=== PATIENT | male | born 1955 | race African-American/Black ===

== ENCOUNTER 2020-12-29 09:26 | Inpatient (IN) ==
[2020-12-29] MEDS ORDERED: NOREPINEPHRINE 4 MG/4 ML VIAL IV ONE (09:36)
[2020-12-29] MEDS ORDERED: ETOMIDATE 20 MG/10 ML VIAL IV ONE (10:00)
[2020-12-29 10:04] LABS: ABG Base Excess -11.7 MMOL/L (-2.5-2.5); ABG HCO3 14.6 MMOL/L (20-26); ABG Oxygen Saturation 55.7 % (95-100); ABG PCO2 32.3 MM HG (35-48); ABG PH 7.258 (7.35-7.45); ABG PO2 42.6 MM HG (80-95); ABG TCO2 14.2 MMOL/L (23-27)
[2020-12-29 10:05] LABS: Immature Granulocytes % 0.7 %; Immature Granulocytes Absolute 0.03 #; Lymphocytes # 0.3 10*3/uL (1.4-4.0); Lymphocytes % 7.6 % (21.2-54.2); Mean Corpuscular HGB Conc 31.1 GM/DL (32-36); Mean Corpuscular Volume 91.5 FL (87-102); Mean Platelet Volume 11.5 FL (9.6-12.0); Monocytes % 5.6 % (1.7-12.7); NRBC # 0.08 10*3/uL; Neutrophils % 86.1 % (38.7-73.9); Platelet Count 125 T/CUMM (130-400); Red Blood Count 1.76 MC/CUMM (3.8-5.5); Red Cell Distribution Width 14.6 % (9.3-17.3); White Blood Count 4.1 T/CUMM (4-12)
[2020-12-29] MEDS ORDERED: PIPERACILLIN/TAZOBACTAM 3,375 MG in SODIUM CHLORIDE 0.9% 100 ML IV STA (10:15)
[2020-12-29 10:17] LABS: Hematocrit 16.1 VOL% (42.0-52.0)
[2020-12-29 10:18] LABS: INR 1.6; PT Patient Result 17.1 SECS (10.5-12.0); Partial Thromboplastin Time 26.1 SECS (23.8-32.1)
[2020-12-29 10:21] LABS: Hypochromasia 2+; Microcytosis 1+
[2020-12-29] MEDS ORDERED: SODIUM CHLORIDE 0.9% 1,000 ML IV PRN (10:21)
[2020-12-29 10:22] LABS: Platelet Estimate Normal
[2020-12-29] MEDS ORDERED: ROCURONIUM 100 MG/10 ML VIAL IV ONE (10:33)
[2020-12-29] MEDS ORDERED: SODIUM CHLORIDE 0.9% 1,000 ML IV STA (10:36)
[2020-12-29 10:47] LABS: Amorphous Crystals,Urine Few /HPF (Few); Bilirubin,Urine Negative (Negative); Blood, Urine Moderate mg/dL (Negative); Glucose,Urine (UA) Negative (Negative); Hyaline Casts,Urine 30 /LPF (0-3); Ketones,Urine Negative (Negative); Mucus,Urine Occasional /LPF (Occasional); Nitrite,Urine Negative (Negative); Protein,Urine 100 MG/DL; RBC,Urine 64 /HPF (0-4); Urine Appearance CLOUDY (Clear); Urine Color Amber (Yellow); Urine Specific Gravity 1.016 (1.001-1.035)
[2020-12-29 10:51] LABS: Albumin 1.7 G/DL (3.4-5.0); Bilirubin,Total 0.7 MG/DL (0.20-1.00); Calcium 7.8 MG/DL (8.5-10.1); Osmolality,Calculated 284.5 MOS/KG (273-304); Potassium 4.5 MMOL/L (3.5-5.1); Total Protein 5.1 G/DL (6.4-8.2)
[2020-12-29] MEDS ORDERED: DEXTROSE 50% 25 GM/50 ML VIAL IV STA (10:59)
[2020-12-29] MEDS ORDERED: ONDANSETRON 4 MG/2 ML VIAL IV PRN (11:01)
[2020-12-29] MEDS ORDERED: DEXTROSE 50% 25 GM/50 ML SYRINGE IV ONE (11:01)
[2020-12-29 11:06] LABS: Barbiturates Screen,Urine Negative (Negative); Benzodiazepines Screen,Urine Negative (Negative); Cannabinoid Screen,Urine Negative (Negative); Opiate Screen,Urine Negative (Negative); Phencyclidine Screen,Urine Negative (Negative)
[2020-12-29] MEDS ORDERED: SODIUM BICARBONATE 50 MEQ/50 ML VIAL IV STA (11:08)
[2020-12-29] MEDS ORDERED: SODIUM BICARBONATE 50 MEQ/50 ML VIAL IV ONE ×3 (11:09→14:32)
[2020-12-29] MEDS ORDERED: PANTOPRAZOLE 40 MG VIAL IV SCH (11:30)
[2020-12-29] MEDS ORDERED: HYDROCORTISONE 100 MG VIAL IV STA (11:31)
[2020-12-29] MEDS ORDERED: LACTATED RINGERS 1,000 ML IV SCH (13:30)
[2020-12-29 13:39] LABS: Hematocrit 21.3 VOL% (42.0-52.0); Hemoglobin 6.8 GM/DL (14.0-18.0)
[2020-12-29 13:40] LABS: ABG Base Excess -10.8 MMOL/L (-2.5-2.5); ABG HCO3 15.4 MMOL/L (20-26); ABG Oxygen Saturation 60.3 % (95-100); ABG PCO2 37.3 MM HG (35-48); ABG PH 7.237 (7.35-7.45); ABG PO2 44.6 MM HG (80-95); ABG TCO2 15.3 MMOL/L (23-27)
[2020-12-29 14:06] LABS: Calcium 7.6 MG/DL (8.5-10.1); Osmolality,Calculated 291.4 MOS/KG (273-304); Potassium 4.7 MMOL/L (3.5-5.1)
[2020-12-29 14:28] LABS: ABG Base Excess -9.8 MMOL/L (-2.5-2.5); ABG HCO3 16.6 MMOL/L (20-26); ABG PCO2 26.2 MM HG (35-48); ABG PH 7.357 (7.35-7.45); ABG TCO2 13.7 MMOL/L (23-27)
[2020-12-29] MEDS: PANTOPRAZOLE 40 MG VIAL IV SCH (14:59)
[2020-12-29] MEDS: cefTRIAXone 1,000 MG in SODIUM CHLORIDE 0.9% 100 ML IV SCH (15:00)
[2020-12-29] MEDS: LACTULOSE 20 GM/30 ML UDCUP PO SCH ×2 (15:00→21:24)
[2020-12-29] MEDS: SODIUM BICARB INJ 150 MEQ in DEXTROSE 5% 1,000 ML IV SCH (17:01)
[2020-12-29] MEDS ORDERED: LACTATED RINGERS 1,000 ML IV ONE (18:16)
[2020-12-29] MEDS: NOREPINEPHRINE 8 MG in SODIUM CHLORIDE 0.9% 242 ML IV PRN (19:30)
[2020-12-29 20:50] LABS: Hematocrit 31.2 VOL% (42.0-52.0); Hemoglobin 9.6 GM/DL (14.0-18.0)
[2020-12-29] MEDS: HYDROCORTISONE 100 MG VIAL IV SCH (21:24)
[2020-12-30 00:44] LABS: Hematocrit 26.7 VOL% (42.0-52.0)
[2020-12-30] MEDS: NOREPINEPHRINE 8 MG in SODIUM CHLORIDE 0.9% 242 ML IV PRN (00:48)
[2020-12-30 03:39] LABS: ABG Base Excess 1.3 MMOL/L (-2.5-2.5); ABG HCO3 25.6 MMOL/L (20-26); ABG Oxygen Saturation 99.8 % (95-100); ABG PCO2 34.3 MM HG (35-48); ABG PH 7.466 (7.35-7.45); ABG TCO2 22.7 MMOL/L (23-27)
[2020-12-30] MEDS: SODIUM BICARB INJ 150 MEQ in DEXTROSE 5% 1,000 ML IV SCH (04:30)
[2020-12-30] MEDS: PANTOPRAZOLE 40 MG VIAL IV SCH ×2 (05:58→14:30)
[2020-12-30] MEDS: HYDROCORTISONE 100 MG VIAL IV SCH ×4 (06:14→21:50)
[2020-12-30 06:52] LABS: Basophils % 0.1 % (0.0-0.8); Hematocrit 26.1 VOL% (42.0-52.0); Hemoglobin 8.9 GM/DL (14.0-18.0); Immature Granulocytes % 0.5 %; Immature Granulocytes Absolute 0.07 #; Lymphocytes # 0.5 10*3/uL (1.4-4.0); Lymphocytes % 3.2 % (21.2-54.2); Mean Corpuscular HGB Conc 34.1 GM/DL (32-36); Mean Corpuscular Volume 86.4 FL (87-102); Mean Platelet Volume 12.3 FL (9.6-12.0); Monocytes % 1.8 % (1.7-12.7); NRBC # 0.31 10*3/uL; Neutrophils % 94.4 % (38.7-73.9); Platelet Count 122 T/CUMM (130-400); Red Blood Count 3.02 MC/CUMM (3.8-5.5); Red Cell Distribution Width 14.5 % (9.3-17.3); White Blood Count 14.8 T/CUMM (4-12)
[2020-12-30 07:15] LABS: Band Neutrophils 2 % (0-10); Lymphocytes 2 % (20-55); Nucleated Red Blood Cells 4 (0-5); Platelet Estimate Normal; Segmented Neutrophils 94 % (50-85); Total Cells Counted 100
[2020-12-30 07:16] LABS: Hypochromasia Slight
[2020-12-30] MEDS ORDERED: LACTATED RINGERS 1,000 ML IV ONE (07:18)
[2020-12-30 07:26] LABS: Vitamin B12 > 2000 PG/ML (211-911)
[2020-12-30 07:31] LABS: % Iron Saturation 19.7 % (18-50); Ferritin 2929.1 ng/mL (26-388)
[2020-12-30 07:34] LABS: Albumin 1.8 G/DL (3.4-5.0); Bilirubin,Total 1.2 MG/DL (0.20-1.00); Calcium 7.3 MG/DL (8.5-10.1); Osmolality,Calculated 293.8 MOS/KG (273-304); Potassium 4.5 MMOL/L (3.5-5.1); Total Protein 5.1 G/DL (6.4-8.2)
[2020-12-30] MEDS: SODIUM CHLORIDE 0.9% 1,000 ML IV SCH ×2 (09:22→12:57)
[2020-12-30] MEDS ORDERED: VANCOMYCIN INJ 1,500 MG in SODIUM CHLORIDE 0.9% 500 ML IV ONE (10:30)
[2020-12-30] MEDS: LACTULOSE 20 GM/30 ML UDCUP PO SCH ×2 (10:37→21:50)
[2020-12-30] MEDS: DOBUTamine 500 MG/250 ML PREMIX IV PRN (10:38)
[2020-12-30] MEDS: cefTRIAXone 1,000 MG in SODIUM CHLORIDE 0.9% 100 ML IV SCH (14:46)
[2020-12-30 14:53] LABS: Hematocrit 23.1 VOL% (42.0-52.0); Hemoglobin 7.7 GM/DL (14.0-18.0)
[2020-12-30] MEDS: DEXTROSE 5% NACL 0.45% 1,000 ML IV SCH (15:43)
[2020-12-30 18:30] LABS: Hematocrit 23.6 VOL% (42.0-52.0); Hemoglobin 7.8 GM/DL (14.0-18.0)
[2020-12-31 01:08] LABS: Hemoglobin 7.7 GM/DL (14.0-18.0)
[2020-12-31] MEDS: DEXTROSE 5% NACL 0.45% 1,000 ML IV SCH ×5 (01:47→21:32)
[2020-12-31] MEDS: PANTOPRAZOLE 40 MG VIAL IV SCH ×2 (03:56→15:13)
[2020-12-31 04:23] LABS: ABG Base Excess 5.3 MMOL/L (-2.5-2.5); ABG HCO3 29.3 MMOL/L (20-26); ABG Oxygen Saturation 99.9 % (95-100); ABG PCO2 36.6 MM HG (35-48); ABG PH 7.503 (7.35-7.45); ABG TCO2 26.8 MMOL/L (23-27)
[2020-12-31] MEDS: HYDROCORTISONE 100 MG VIAL IV SCH ×3 (05:44→20:53)
[2020-12-31 06:07] LABS: Basophils % 0.1 % (0.0-0.8); Hemoglobin 7.5 GM/DL (14.0-18.0); Immature Granulocytes % 0.9 %; Immature Granulocytes Absolute 0.13 #; Lymphocytes # 0.4 10*3/uL (1.4-4.0); Lymphocytes % 2.4 % (21.2-54.2); Mean Corpuscular HGB Conc 32.6 GM/DL (32-36); Mean Corpuscular Volume 87.1 FL (87-102); Mean Platelet Volume 12.5 FL (9.6-12.0); Monocytes % 1.6 % (1.7-12.7); NRBC # 0.36 10*3/uL; Platelet Count 100 T/CUMM (130-400); Red Blood Count 2.64 MC/CUMM (3.8-5.5); Red Cell Distribution Width 14.7 % (9.3-17.3); White Blood Count 15.2 T/CUMM (4-12)
[2020-12-31 06:38] LABS: Albumin 1.7 G/DL (3.4-5.0); Bilirubin,Total 0.9 MG/DL (0.20-1.00); Calcium 7.2 MG/DL (8.5-10.1); Hypochromasia 2+; Lymphocytes 5 % (20-55); Osmolality,Calculated 298.1 MOS/KG (273-304); Platelet Estimate Adequate; Potassium 3.7 MMOL/L (3.5-5.1); Segmented Neutrophils 93 % (50-85); Total Cells Counted 100; Total Protein 4.7 G/DL (6.4-8.2)
[2020-12-31] MEDS: VANCOMYCIN INJ 1,000 MG in SODIUM CHLORIDE 0.9% 250 ML IV SCH (09:32)
[2020-12-31] MEDS: LACTULOSE 20 GM/30 ML UDCUP PO SCH ×2 (09:32→20:52)
[2020-12-31] MEDS: SODIUM CHLORIDE 0.9% 1,000 ML IV SCH (09:33)
[2020-12-31] MEDS: DOBUTamine 500 MG/250 ML PREMIX IV PRN (11:06)
[2020-12-31 11:10] LABS: Hepatitis B Core IgM Quant 0.14 Index; Hepatitis B Surface Ag Quant < 0.10 Index; Hepatitis B Surface Ag Result Non-Reactive (NonReactive); Hepatitis C Virus Ab Quant 0.11 Index; Hepatitis C Virus Ab Result Non-Reactive (NonReactive)
[2021-01-01 03:40] LABS: ABG Base Excess 3.2 MMOL/L (-2.5-2.5); ABG HCO3 27.3 MMOL/L (20-26); ABG Oxygen Saturation 99.7 % (95-100); ABG PCO2 39.1 MM HG (35-48); ABG PH 7.451 (7.35-7.45); ABG TCO2 25.4 MMOL/L (23-27)
[2021-01-01] MEDS: PANTOPRAZOLE 40 MG VIAL IV SCH ×2 (03:52→14:59)
[2021-01-01] MEDS: HYDROCORTISONE 100 MG VIAL IV SCH ×3 (05:31→20:39)
[2021-01-01 06:03] LABS: Basophils % 0.1 % (0.0-0.8); Hematocrit 24.5 VOL% (42.0-52.0); Immature Granulocytes % 0.8 %; Immature Granulocytes Absolute 0.11 #; Lymphocytes # 0.5 10*3/uL (1.4-4.0); Lymphocytes % 3.6 % (21.2-54.2); Mean Corpuscular HGB Conc 32.7 GM/DL (32-36); Mean Corpuscular Volume 88.4 FL (87-102); Mean Platelet Volume 12.6 FL (9.6-12.0); Monocytes % 2.7 % (1.7-12.7); NRBC # 0.55 10*3/uL; Neutrophils % 92.8 % (38.7-73.9); Platelet Count 97 T/CUMM (130-400); Red Blood Count 2.77 MC/CUMM (3.8-5.5); Red Cell Distribution Width 15.4 % (9.3-17.3); White Blood Count 13.8 T/CUMM (4-12)
[2021-01-01 06:23] LABS: Ovalocytes Few; Platelet Estimate Decreased; Target Cells Few
[2021-01-01 06:26] LABS: Anisocytosis 3+; Burr Cells Few; Macrocytosis 1+
[2021-01-01 06:46] LABS: Albumin 1.7 G/DL (3.4-5.0); Bilirubin,Total 0.8 MG/DL (0.20-1.00); Calcium 7.6 MG/DL (8.5-10.1); Osmolality,Calculated 288.7 MOS/KG (273-304); Potassium 3.8 MMOL/L (3.5-5.1)
[2021-01-01] MEDS: DEXTROSE 5% NACL 0.45% 1,000 ML IV SCH (07:02)
[2021-01-01] MEDS ORDERED: GLUCAGON 1 MG VIAL IM PRN (08:30)
[2021-01-01] MEDS ORDERED: DEXTROSE 50% 25 GM/50 ML SYRINGE IV PRN (08:43)
[2021-01-01] MEDS ORDERED: carvediloL 3.125 MG TABLET PO SCH (09:30)
[2021-01-01] MEDS: LACTULOSE 20 GM/30 ML UDCUP PO SCH ×2 (09:34→20:39)
[2021-01-01] MEDS: VANCOMYCIN INJ 1,000 MG in SODIUM CHLORIDE 0.9% 250 ML IV SCH (09:35)
[2021-01-01] MEDS: SODIUM CHLORIDE 0.9% 1,000 ML IV SCH (10:39)
[2021-01-01] MEDS ORDERED: ROCURONIUM 100 MG/10 ML VIAL IV ONE ×2 (10:48)
[2021-01-01] MEDS ORDERED: PIPERACILLIN/TAZOBACTAM 3,375 MG in SODIUM CHLORIDE 0.9% 100 ML IV SCH (12:00)
[2021-01-01] MEDS: INSULIN REGULAR 100 UNIT/ML SUBCUT SCH ×2 (12:30→17:49)
[2021-01-01] MEDS: MEROPENEM 500 MG in SODIUM CHLORIDE 0.9% 100 ML IV SCH ×2 (12:31→17:50)
[2021-01-01] MEDS: DOXYCYCLINE HYCLATE INJ 100 MG in SODIUM CHLORIDE 0.9% 100 ML IV SCH (13:06)
[2021-01-01] MEDS: ALBUTEROL/IPRATROPIUM 3 ML NEB RESP TX SCH ×2 (13:52→19:00)
[2021-01-01] MEDS: carvediloL 3.125 MG TABLET PO SCH (17:49)
[2021-01-01] MEDS: BUDESONIDE 0.5 MG/2 ML NEB RESP TX SCH (19:00)
[2021-01-02] MEDS: MEROPENEM 500 MG in SODIUM CHLORIDE 0.9% 100 ML IV SCH ×4 (00:45→17:19)
[2021-01-02] MEDS: carvediloL 3.125 MG TABLET PO SCH ×4 (00:46→17:19)
[2021-01-02] MEDS: INSULIN REGULAR 100 UNIT/ML SUBCUT SCH ×4 (00:56→17:19)
[2021-01-02] MEDS: ALBUTEROL/IPRATROPIUM 3 ML NEB RESP TX SCH ×4 (01:00→19:00)
[2021-01-02] MEDS: DOXYCYCLINE HYCLATE INJ 100 MG in SODIUM CHLORIDE 0.9% 100 ML IV SCH (01:20)
[2021-01-02] MEDS: PANTOPRAZOLE 40 MG VIAL IV SCH ×2 (03:57→16:45)
[2021-01-02] MEDS: HYDROCORTISONE 100 MG VIAL IV SCH ×4 (05:35→21:20)
[2021-01-02 07:29] LABS: Basophils % 0.1 % (0.0-0.8); Hemoglobin 8.2 GM/DL (14.0-18.0); Immature Granulocytes Absolute 0.12 #; Lymphocytes # 0.3 10*3/uL (1.4-4.0); Lymphocytes % 2.7 % (21.2-54.2); Mean Corpuscular HGB Conc 31.5 GM/DL (32-36); Mean Corpuscular Volume 89.7 FL (87-102); Mean Platelet Volume 12.3 FL (9.6-12.0); Monocytes % 5.5 % (1.7-12.7); NRBC # 0.85 10*3/uL; Neutrophils % 90.7 % (38.7-73.9); Platelet Count 78 T/CUMM (130-400); Red Cell Distribution Width 15.7 % (9.3-17.3)
[2021-01-02 08:03] LABS: Anisocytosis 2+; Burr Cells 1+; Hypochromasia Slight; Lymphocytes 3 % (20-55); Nucleated Red Blood Cells 15 (0-5); Platelet Estimate Decreased; Segmented Neutrophils 93 % (50-85); Smudge Cells Few; Target Cells Few; Total Cells Counted 100
[2021-01-02 08:06] LABS: Albumin 1.8 G/DL (3.4-5.0); Bilirubin,Total 0.7 MG/DL (0.20-1.00); Calcium 7.7 MG/DL (8.5-10.1); Osmolality,Calculated 290.4 MOS/KG (273-304); Potassium 3.9 MMOL/L (3.5-5.1); Total Protein 5.1 G/DL (6.4-8.2)
[2021-01-02] MEDS: BUDESONIDE 0.5 MG/2 ML NEB RESP TX SCH ×2 (08:42→19:00)
[2021-01-02] MEDS: LACTULOSE 20 GM/30 ML UDCUP PO SCH ×2 (09:40→21:18)
[2021-01-02] MEDS: VANCOMYCIN INJ 1,000 MG in SODIUM CHLORIDE 0.9% 250 ML IV SCH ×3 (10:00→22:32)
[2021-01-02 12:18] LABS: ABG Base Excess 2.7 MMOL/L (-2.5-2.5); ABG HCO3 26.8 MMOL/L (20-26); ABG Oxygen Saturation 99.2 % (95-100); ABG PCO2 37.9 MM HG (35-48); ABG PH 7.455 (7.35-7.45); ABG TCO2 24.6 MMOL/L (23-27); Allen Test Positive; Pt O2 Delivery Device Ventilator
[2021-01-02] MEDS: SODIUM CHLORIDE 0.9% 1,000 ML IV SCH (17:13)
[2021-01-03] MEDS: carvediloL 3.125 MG TABLET PO SCH ×5 (00:38→23:25)
[2021-01-03] MEDS: INSULIN REGULAR 100 UNIT/ML SUBCUT SCH ×4 (00:38→17:09)
[2021-01-03] MEDS: MEROPENEM 500 MG in SODIUM CHLORIDE 0.9% 100 ML IV SCH ×4 (00:39→23:25)
[2021-01-03] MEDS: ALBUTEROL/IPRATROPIUM 3 ML NEB RESP TX SCH ×4 (01:00→20:47)
[2021-01-03] MEDS: PANTOPRAZOLE 40 MG VIAL IV SCH ×2 (03:13→14:00)
[2021-01-03 05:43] LABS: Basophils % 0.1 % (0.0-0.8); Hematocrit 27.4 VOL% (42.0-52.0); Hemoglobin 8.6 GM/DL (14.0-18.0); Immature Granulocytes % 0.8 %; Immature Granulocytes Absolute 0.09 #; Lymphocytes # 0.5 10*3/uL (1.4-4.0); Lymphocytes % 3.8 % (21.2-54.2); Mean Corpuscular HGB Conc 31.4 GM/DL (32-36); Monocytes % 5.5 % (1.7-12.7); NRBC # 0.63 10*3/uL; Neutrophils % 89.8 % (38.7-73.9); Platelet Count 65 T/CUMM (130-400); Red Blood Count 3.01 MC/CUMM (3.8-5.5); Red Cell Distribution Width 15.8 % (9.3-17.3); White Blood Count 11.8 T/CUMM (4-12)
[2021-01-03 06:00] LABS: Albumin 1.9 G/DL (3.4-5.0); Bilirubin,Total 1.3 MG/DL (0.20-1.00); Osmolality,Calculated 288.4 MOS/KG (273-304); Total Protein 5.3 G/DL (6.4-8.2)
[2021-01-03 06:17] LABS: Lymphocytes 1 % (20-55); Nucleated Red Blood Cells 7 (0-5); Segmented Neutrophils 92 % (50-85); Total Cells Counted 100
[2021-01-03] MEDS: HYDROCORTISONE 100 MG VIAL IV SCH ×3 (06:17→23:25)
[2021-01-03 06:18] LABS: Anisocytosis 1+; Hypochromasia 2+; Microcytosis 1+; Polychromasia Slight
[2021-01-03 06:19] LABS: Ovalocytes Slight; Platelet Estimate Decreased; Target Cells Few
[2021-01-03] MEDS: BUDESONIDE 0.5 MG/2 ML NEB RESP TX SCH ×2 (06:50→20:47)
[2021-01-03 09:21] LABS: ABG Base Excess 2.7 MMOL/L (-2.5-2.5); ABG HCO3 26.8 MMOL/L (20-26); ABG Oxygen Saturation 96.2 % (95-100); ABG PCO2 44.6 MM HG (35-48); ABG PH 7.403 (7.35-7.45); ABG PO2 87.4 MM HG (80-95); ABG TCO2 25.7 MMOL/L (23-27); Pt O2 Delivery Device Venturi Mask
[2021-01-03] MEDS: VANCOMYCIN INJ 1,000 MG in SODIUM CHLORIDE 0.9% 250 ML IV SCH (11:30)
[2021-01-03] MEDS: LACTULOSE 20 GM/30 ML UDCUP PO SCH ×2 (11:30→23:25)
[2021-01-03] MEDS: SODIUM CHLORIDE 0.9% 1,000 ML IV SCH (11:55)
[2021-01-04] MEDS: INSULIN REGULAR 100 UNIT/ML SUBCUT SCH ×4 (01:02→17:34)
[2021-01-04] MEDS: VANCOMYCIN INJ 1,000 MG in SODIUM CHLORIDE 0.9% 250 ML IV SCH ×2 (01:03→14:12)
[2021-01-04] MEDS: ALBUTEROL/IPRATROPIUM 3 ML NEB RESP TX SCH ×4 (01:18→19:32)
[2021-01-04] MEDS: PANTOPRAZOLE 40 MG VIAL IV SCH ×2 (04:17→17:33)
[2021-01-04] MEDS: HYDROCORTISONE 100 MG VIAL IV SCH ×3 (04:17→22:27)
[2021-01-04] MEDS: carvediloL 3.125 MG TABLET PO SCH ×3 (05:13→17:34)
[2021-01-04] MEDS: MEROPENEM 500 MG in SODIUM CHLORIDE 0.9% 100 ML IV SCH (05:13)
[2021-01-04] MEDS: BUDESONIDE 0.5 MG/2 ML NEB RESP TX SCH ×2 (07:03→19:30)
[2021-01-04 07:24] LABS: Basophils % 0.1 % (0.0-0.8); Hematocrit 31.4 VOL% (42.0-52.0); Hemoglobin 10.1 GM/DL (14.0-18.0); Immature Granulocytes % 0.5 %; Immature Granulocytes Absolute 0.07 #; Lymphocytes # 0.3 10*3/uL (1.4-4.0); Lymphocytes % 2.3 % (21.2-54.2); Mean Corpuscular HGB Conc 32.2 GM/DL (32-36); NRBC # 0.54 10*3/uL; Neutrophils % 93.1 % (38.7-73.9); Platelet Count 50 T/CUMM (130-400); Red Blood Count 3.45 MC/CUMM (3.8-5.5); Red Cell Distribution Width 16.1 % (9.3-17.3); White Blood Count 12.9 T/CUMM (4-12)
[2021-01-04 07:45] LABS: Albumin 1.8 G/DL (3.4-5.0); Bilirubin,Total 1.6 MG/DL (0.20-1.00); Calcium 8.2 MG/DL (8.5-10.1); Osmolality,Calculated 288.8 MOS/KG (273-304); Potassium 4.9 MMOL/L (3.5-5.1); Total Protein 5.4 G/DL (6.4-8.2)
[2021-01-04 08:09] LABS: Lymphocytes 1 % (20-55); Nucleated Red Blood Cells 10 (0-5); Segmented Neutrophils 97 % (50-85); Total Cells Counted 100
[2021-01-04 08:10] LABS: Hypochromasia 2+; Microcytosis 1+; Polychromasia Slight
[2021-01-04 08:11] LABS: Ovalocytes Slight; Target Cells Few
[2021-01-04] MEDS: LACTULOSE 20 GM/30 ML UDCUP PO SCH ×2 (09:51→22:26)
[2021-01-04] MEDS: LOSARTAN 25 MG TABLET PO SCH (09:55)
[2021-01-04 13:19] LABS: HIV Antigen/Antibody Result Nonreactive (Nonreactive)
[2021-01-04] MEDS: cefTRIAXone 2,000 MG in SODIUM CHLORIDE 0.9% 100 ML IV SCH (14:09)
[2021-01-04] MEDS: FLUCONAZOLE INJ 400 MG/200 ML PREMIX IV SCH (14:10)
[2021-01-05] MEDS: ALBUTEROL/IPRATROPIUM 3 ML NEB RESP TX SCH ×4 (00:08→21:28)
[2021-01-05] MEDS: carvediloL 3.125 MG TABLET PO SCH ×4 (01:47→18:13)
[2021-01-05] MEDS: INSULIN REGULAR 100 UNIT/ML SUBCUT SCH ×4 (01:50→18:13)
[2021-01-05] MEDS: PANTOPRAZOLE 40 MG VIAL IV SCH ×2 (05:57→15:32)
[2021-01-05] MEDS: HYDROCORTISONE 100 MG VIAL IV SCH ×2 (05:57→12:28)
[2021-01-05] MEDS: BUDESONIDE 0.5 MG/2 ML NEB RESP TX SCH ×2 (07:00→21:28)
[2021-01-05] MEDS: LACTULOSE 20 GM/30 ML UDCUP PO SCH ×2 (08:40→20:41)
[2021-01-05] MEDS: FLUCONAZOLE INJ 400 MG/200 ML PREMIX IV SCH (08:41)
[2021-01-05] MEDS: LOSARTAN 25 MG TABLET PO SCH (08:41)
[2021-01-05] MEDS: cefTRIAXone 2,000 MG in SODIUM CHLORIDE 0.9% 100 ML IV SCH (10:43)
[2021-01-05 20:26] LABS: Hematocrit 29.2 VOL% (42.0-52.0); Hemoglobin 9.3 GM/DL (14.0-18.0); Immature Granulocytes % 0.8 %; Immature Granulocytes Absolute 0.11 #; Lymphocytes # 0.3 10*3/uL (1.4-4.0); Lymphocytes % 2.3 % (21.2-54.2); Mean Corpuscular HGB Conc 31.8 GM/DL (32-36); Mean Corpuscular Volume 87.2 FL (87-102); Mean Platelet Volume 14.5 FL (9.6-12.0); Monocytes % 4.8 % (1.7-12.7); Neutrophils % 92.1 % (38.7-73.9); Platelet Count 76 T/CUMM (130-400); Red Blood Count 3.35 MC/CUMM (3.8-5.5); Red Cell Distribution Width 15.9 % (9.3-17.3); White Blood Count 14.1 T/CUMM (4-12)
[2021-01-05 20:37] LABS: Albumin 1.7 G/DL (3.4-5.0); Bilirubin,Total 0.8 MG/DL (0.20-1.00); Calcium 7.9 MG/DL (8.5-10.1); Osmolality,Calculated 283.1 MOS/KG (273-304); Potassium 4.3 MMOL/L (3.5-5.1)
[2021-01-05] MEDS: HYDROCORTISONE 10 MG TABLET PO SCH (20:41)
[2021-01-05 20:55] LABS: Lymphocytes 1 % (20-55); Nucleated Red Blood Cells 2 (0-5); Segmented Neutrophils 96 % (50-85); Total Cells Counted 100
[2021-01-05 20:56] LABS: Hypochromasia Slight; Polychromasia Few; Schistocytes Slight
[2021-01-05 20:57] LABS: Target Cells Few
[2021-01-05 20:58] LABS: Anisocytosis 1+
[2021-01-05 20:59] LABS: Elliptocytes Few
[2021-01-05 21:00] LABS: Platelet Estimate Decreased; Reactive Lymphocytes Slight
[2021-01-06] MEDS: ALBUTEROL/IPRATROPIUM 3 ML NEB RESP TX SCH ×4 (00:08→19:55)
[2021-01-06] MEDS: carvediloL 3.125 MG TABLET PO SCH ×4 (01:58→17:33)
[2021-01-06] MEDS: INSULIN REGULAR 100 UNIT/ML SUBCUT SCH ×4 (02:06→18:42)
[2021-01-06] MEDS: PANTOPRAZOLE 40 MG VIAL IV SCH ×2 (03:33→15:53)
[2021-01-06 06:04] LABS: Albumin 1.6 G/DL (3.4-5.0); Bilirubin,Total 0.9 MG/DL (0.20-1.00); Calcium 7.7 MG/DL (8.5-10.1); Osmolality,Calculated 284.7 MOS/KG (273-304); Potassium 4.5 MMOL/L (3.5-5.1); Total Protein 5.1 G/DL (6.4-8.2)
[2021-01-06] MEDS: BUDESONIDE 0.5 MG/2 ML NEB RESP TX SCH ×2 (07:10→19:55)
[2021-01-06] MEDS: LOSARTAN 25 MG TABLET PO SCH (09:00)
[2021-01-06] MEDS: LACTULOSE 20 GM/30 ML UDCUP PO SCH ×2 (09:00→21:36)
[2021-01-06] MEDS: FLUCONAZOLE INJ 400 MG/200 ML PREMIX IV SCH (09:00)
[2021-01-06] MEDS: HYDROCORTISONE 10 MG TABLET PO SCH ×2 (09:01→21:36)
[2021-01-06] MEDS: cefTRIAXone 2,000 MG in SODIUM CHLORIDE 0.9% 100 ML IV SCH (11:51)
[2021-01-07] MEDS: ALBUTEROL/IPRATROPIUM 3 ML NEB RESP TX SCH ×4 (00:35→20:13)
[2021-01-07] MEDS: carvediloL 3.125 MG TABLET PO SCH ×4 (01:53→21:05)
[2021-01-07] MEDS: INSULIN REGULAR 100 UNIT/ML SUBCUT SCH ×4 (01:53→20:00)
[2021-01-07] MEDS: PANTOPRAZOLE 40 MG VIAL IV SCH ×2 (03:15→17:26)
[2021-01-07 08:13] LABS: Hematocrit 29.2 VOL% (42.0-52.0); Hemoglobin 9.3 GM/DL (14.0-18.0); Immature Granulocytes % 0.8 %; Immature Granulocytes Absolute 0.08 #; Lymphocytes # 0.5 10*3/uL (1.4-4.0); Mean Corpuscular HGB Conc 31.8 GM/DL (32-36); Mean Corpuscular Volume 88.2 FL (87-102); Mean Platelet Volume 13.7 FL (9.6-12.0); Monocytes % 4.4 % (1.7-12.7); NRBC # 0.03 10*3/uL; Neutrophils % 89.8 % (38.7-73.9); Platelet Count 79 T/CUMM (130-400); Red Blood Count 3.31 MC/CUMM (3.8-5.5); Red Cell Distribution Width 15.9 % (9.3-17.3); White Blood Count 10.6 T/CUMM (4-12)
[2021-01-07 08:42] LABS: Calcium 7.7 MG/DL (8.5-10.1); Osmolality,Calculated 289.1 MOS/KG (273-304); Potassium 4.2 MMOL/L (3.5-5.1)
[2021-01-07 08:59] LABS: Hypochromasia 1+; Microcytosis 1+; Target Cells Slight
[2021-01-07 09:00] LABS: Ovalocytes Slight; Platelet Estimate Decreased; Polychromasia Slight
[2021-01-07] MEDS: HYDROCORTISONE 10 MG TABLET PO SCH ×2 (09:20→21:05)
[2021-01-07] MEDS: LOSARTAN 25 MG TABLET PO SCH (09:20)
[2021-01-07] MEDS: LACTULOSE 20 GM/30 ML UDCUP PO SCH ×2 (09:21→21:05)
[2021-01-07] MEDS: FLUCONAZOLE INJ 400 MG/200 ML PREMIX IV SCH (09:21)
[2021-01-07] MEDS: BUDESONIDE 0.5 MG/2 ML NEB RESP TX SCH ×2 (10:24→20:13)
[2021-01-07] MEDS: cefTRIAXone 2,000 MG in SODIUM CHLORIDE 0.9% 100 ML IV SCH (11:54)
[2021-01-08] MEDS: ALBUTEROL/IPRATROPIUM 3 ML NEB RESP TX SCH ×4 (00:25→20:23)
[2021-01-08] MEDS: PANTOPRAZOLE 40 MG VIAL IV SCH ×2 (03:20→15:33)
[2021-01-08] MEDS: carvediloL 3.125 MG TABLET PO SCH ×5 (03:25→21:33)
[2021-01-08] MEDS: BUDESONIDE 0.5 MG/2 ML NEB RESP TX SCH ×2 (07:05→20:23)
[2021-01-08] MEDS: INSULIN REGULAR 100 UNIT/ML SUBCUT SCH ×3 (09:40→17:45)
[2021-01-08] MEDS: cefTRIAXone 2,000 MG in SODIUM CHLORIDE 0.9% 100 ML IV SCH (10:07)
[2021-01-08] MEDS: LOSARTAN 25 MG TABLET PO SCH (10:08)
[2021-01-08] MEDS: HYDROCORTISONE 10 MG TABLET PO SCH ×2 (10:08→21:33)
[2021-01-08] MEDS: LACTULOSE 20 GM/30 ML UDCUP PO SCH ×2 (10:08→21:33)
[2021-01-08] MEDS: FLUCONAZOLE INJ 400 MG/200 ML PREMIX IV SCH (11:38)
[2021-01-09] MEDS: INSULIN REGULAR 100 UNIT/ML SUBCUT SCH ×4 (00:52→17:44)
[2021-01-09] MEDS: ALBUTEROL/IPRATROPIUM 3 ML NEB RESP TX SCH ×4 (01:28→19:58)
[2021-01-09] MEDS: PANTOPRAZOLE 40 MG VIAL IV SCH ×2 (03:27→16:15)
[2021-01-09] MEDS: carvediloL 3.125 MG TABLET PO SCH ×4 (03:27→21:11)
[2021-01-09 07:03] LABS: Calcium 7.9 MG/DL (8.5-10.1); Osmolality,Calculated 286.4 MOS/KG (273-304); Potassium 4.7 MMOL/L (3.5-5.1)
[2021-01-09] MEDS: BUDESONIDE 0.5 MG/2 ML NEB RESP TX SCH ×2 (07:21→20:06)
[2021-01-09 08:18] LABS: Basophils % 0.2 % (0.0-0.8); Immature Granulocytes % 0.6 %; Immature Granulocytes Absolute 0.07 #; Lymphocytes # 0.7 10*3/uL (1.4-4.0); Mean Corpuscular HGB Conc 30.3 GM/DL (32-36); Mean Corpuscular Volume 94.8 FL (87-102); Monocytes % 4.6 % (1.7-12.7); NRBC # 0.03 10*3/uL; Neutrophils % 88.6 % (38.7-73.9); Platelet Count 54 T/CUMM (130-400); Red Blood Count 3.48 MC/CUMM (3.8-5.5); White Blood Count 11.6 T/CUMM (4-12)
[2021-01-09 08:32] LABS: Platelet Estimate Decreased
[2021-01-09] MEDS: LOSARTAN 25 MG TABLET PO SCH (09:32)
[2021-01-09] MEDS: HYDROCORTISONE 10 MG TABLET PO SCH ×2 (09:32→21:11)
[2021-01-09] MEDS: LACTULOSE 20 GM/30 ML UDCUP PO SCH ×2 (09:32→21:11)
[2021-01-09] MEDS: FLUCONAZOLE INJ 400 MG/200 ML PREMIX IV SCH (09:32)
[2021-01-09] MEDS: cefTRIAXone 2,000 MG in SODIUM CHLORIDE 0.9% 100 ML IV SCH (11:54)
[2021-01-09] MEDS: SKIN HEALING OINT (AQUAPHOR) 50 GM TUBE TOP SCH (14:03)
[2021-01-10] MEDS: ALBUTEROL/IPRATROPIUM 3 ML NEB RESP TX SCH ×4 (00:52→21:15)
[2021-01-10] MEDS: INSULIN REGULAR 100 UNIT/ML SUBCUT SCH ×4 (01:34→18:35)
[2021-01-10] MEDS: carvediloL 3.125 MG TABLET PO SCH ×4 (04:01→22:17)
[2021-01-10] MEDS: PANTOPRAZOLE 40 MG VIAL IV SCH ×2 (04:01→15:47)
[2021-01-10] MEDS: BUDESONIDE 0.5 MG/2 ML NEB RESP TX SCH ×2 (07:10→21:16)
[2021-01-10] MEDS: LACTULOSE 20 GM/30 ML UDCUP PO SCH ×2 (09:47→22:17)
[2021-01-10] MEDS: FLUCONAZOLE INJ 400 MG/200 ML PREMIX IV SCH (09:47)
[2021-01-10] MEDS: LOSARTAN 25 MG TABLET PO SCH (09:48)
[2021-01-10] MEDS: SKIN HEALING OINT (AQUAPHOR) 50 GM TUBE TOP SCH (09:48)
[2021-01-10] MEDS: HYDROCORTISONE 10 MG TABLET PO SCH ×2 (09:48→22:17)
[2021-01-10] MEDS: cefTRIAXone 2,000 MG in SODIUM CHLORIDE 0.9% 100 ML IV SCH (11:49)
[2021-01-10] MEDS: CIPROFLOXACIN 500 MG TABLET PO SCH (22:17)
[2021-01-11] MEDS: ALBUTEROL/IPRATROPIUM 3 ML NEB RESP TX SCH ×2 (01:35→07:13)
[2021-01-11] MEDS: INSULIN REGULAR 100 UNIT/ML SUBCUT SCH ×2 (01:53→05:40)
[2021-01-11] MEDS: PANTOPRAZOLE 40 MG VIAL IV SCH (04:19)
[2021-01-11] MEDS: carvediloL 3.125 MG TABLET PO SCH ×2 (04:20→08:25)
[2021-01-11] MEDS: BUDESONIDE 0.5 MG/2 ML NEB RESP TX SCH (07:13)
[2021-01-11 08:09] VITALS: BP 101/77
[2021-01-11] MEDS: HYDROCORTISONE 10 MG TABLET PO SCH (08:25)
[2021-01-11] MEDS: LOSARTAN 25 MG TABLET PO SCH (08:25)
[2021-01-11] MEDS: LACTULOSE 20 GM/30 ML UDCUP PO SCH (08:25)
[2021-01-11] MEDS: CIPROFLOXACIN 500 MG TABLET PO SCH (08:25)
[2021-01-11] MEDS: SKIN HEALING OINT (AQUAPHOR) 50 GM TUBE TOP SCH (08:26)
== END 2021-01-11 09:15 | DRG 870 ==
LOC: EDBD → EDUNIT# → N.ED 09:26 → SUATTDRO 11:00 → N.EDINP 11:00 → N.ICU 12:36 → N.3W 01-03 15:38
PROVIDERS: ADMIT Family Medicine; ATTEND Internal Medicine